=== PATIENT | male | born 1965 | race African-American/Black ===

== ENCOUNTER 2017-02-03 13:00 | Inpatient (IN) | payer MEDICARE, OTHER ==
[~2017-02-03] VITALS: Ht 182.9 cm; Wt 84.4 kg
--- NOTE | ~2017-02-03 | PN ---
Unit #: [id number] #: [id number] Patient: MK UGALDE [id number] [facility] [address] [place] [address] [id number] I MR#: [id number] NAME: MK UGALDE ROOM: 16 Age: 51 Sex: M Admission Date: 02/03/2017 : 1965 Attending Physician: Gatito Vasquez M.D. Admitting Physician: Gatito Vasquez M.D. Primary Care Physician: Generic Doctor Not In System [facility] PROGRESS NOTES DATE 02/06/2017 DISCUSSION Mr. Ugalde continues to have rambling and disorganized speech with paranoia and grandiosity. He is compliant with medications and is sleeping a little bit better. He is alert and fully oriented. His memory and concentration are fair. Thought processes are goal directed and nonpsychotic. ASSESSMENT Schizophrenia paranoid type. PLAN Continue with Zyprexa with dose increased to 15 mg at bedtime. Dictated by... Gatito Vasquez M.D. [facility]/bzg TD: 02/14/2017 11:01 JOB #: [id number] [facility] PROGRESS NOTES Page 1 of 1 X Gatito Vasquez MD PROGRESS NOTE
--- NOTE | ~2017-02-03 | PN ---
Unit #: [id number] #: [id number] Patient: MK UGALDE [id number] [facility] [address] [place] [address] [id number] I MR#: [id number] NAME: MK UGALDE ROOM: 16 Age: 51 Sex: M Admission Date: 02/03/2017 : 1965 Attending Physician: Gatito Vasquez M.D. Admitting Physician: Gatito Vasquez M.D. Primary Care Physician: Generic Doctor Not In System [facility] PROGRESS NOTES DATE 02/10/2017 DISCUSSION Mr. Ugalde is showing some improvement with the addition of Haldol and full compliance. He is not engaged in any further sexual acting out behaviors on the unit and his speech is becoming slightly more intelligible. He is alert and fully oriented with no active suicidal or homicidal ideation. ASSESSMENT Schizophrenia, paranoid type. PLAN Continue current treatment plan. Dictated by... Gatito Vasquez M.D. [facility]/vamshi TD: 02/14/2017 16:54 JOB #: [id number] [facility] PROGRESS NOTES Page 1 of 1 X Gatito Vasquez MD PROGRESS NOTE
--- NOTE | ~2017-02-03 | DS ---
Unit #: [id number] #: [id number] Patient: MK UGALDE [id number] [facility] [address] [place] [address] [id number] I MR#: [id number] NAME: MK UGALDE ROOM: [facility] Age: 51 Sex: M Admission Date: 02/03/2017 : 1965 Discharge Date: 02/11/2017 Attending Physician: Gatito Vasquez M.D. Primary Care Physician: Generic Doctor Not In System DISCHARGE SUMMARY REASON FOR ADMISSION Mr. Ugalde, is a 51-year-old man, with a long history of schizophrenia, well known to me from previous admissions. He came in reporting noncompliance and decompensation and was in a clearly psychotic state. He was admitted for stabilization. DIAGNOSTIC STUDIES Laboratory data, please see hospital chart. HOSPITAL COURSE Mr. Ugalde was admitted and placed on psychosis precautions. Zyprexa 10 mg at bedtime was continued, with a later improvement to 15 mg at bedtime. The patient continued to have rambling speech and paranoia despite compliance with this medication, and due to the sedation this medication was not further increased as an attempt to further control his psychosis, I added Prolixin 5 mg twice daily. The patient had one episode of what appeared to be a mild dystonic reaction to this medication which quickly resolved. He was further able to contract for safety on the date of discharge and appeared improved. DISCHARGE DIAGNOSES Curtice I Schizophrenia, paranoid type. Curtice II No diagnosis. Curtice III None acute. Curtice IV Curtice V INSTRUCTIONS TO PATIENT Follow up with [facility]. DISCHARGE MEDICATIONS 1. Zyprexa 15 mg at bedtime for psychosis 2. Prolixin 5 mg twice daily for psychosis CONDITION AT DISCHARGE Improved. PROGNOSIS Iilp-we-gwgw. DIET AND ACTIVITY Per primary care physician. Unit #: [id number] #: [id number] Patient: MK UGALDE Dictated by... Azeb Champion/ruben TD: 02/16/2017 07:16 JOB #: [id number] DISCHARGE SUMMARY Page 1 of 1 X Gatito Vasquez MD X DISCHARGE SUMMARY
--- NOTE | ~2017-02-03 | PN ---
Unit #: [id number] #: [id number] Patient: MK UGALDE [id number] [facility] [address] [place] [address] [id number] I MR#: [id number] NAME: MK UGALDE ROOM: 16 Age: 51 Sex: M Admission Date: 02/03/2017 : 1965 Attending Physician: Gatito Vasquez M.D. Admitting Physician: Gatito Vasquez M.D. Primary Care Physician: Generic Doctor Not In System [facility] PROGRESS NOTES DATE 02/08/2017 DISCUSSION Mr. Ugalde has successfully tolerated his increased Zyprexa with some sedation but otherwise no other or side effects. His mood is still a little irritable with decreased range of affect, but his thought processes appeared to be mildly more logical and goal directed with less paranoia and grandiosity. ASSESSMENT Schizophrenia paranoid type. PLAN Continue current treatment plan. Dictated by... Gatito Vasquez M.D. [facility]/bzg TD: 02/14/2017 11:14 JOB #: [id number] [facility] PROGRESS NOTES Page 1 of 1 X Gatito Vasquez MD PROGRESS NOTE
--- NOTE | ~2017-02-03 | HP ---
Unit #: [id number] #: [id number] Patient: RICKY HYATT [id number] [facility] [address] [place] [address] [id number] I MR#: [id number] NAME: RICKY HYATT ROOM: [facility] Age: 51 Sex: M Admission Date: 02/03/2017 : 1965 Attending Physician: Gatito Vasquez M.D. Admitting Physician: Gatito Vasquez M.D. Primary Care Physician: Generic Doctor Not In System HISTORY AND PHYSICAL HISTORY OF PRESENT ILLNESS Ricky is a 51 year old admitted to [address] [place] [address] with psychotic behavior. He at time of admission appeared to be responding to internal stimuli. He is a poor historian so his history is taken from his chart. PAST MEDICAL HISTORY 1. History of alcohol abuse to include rubbing alcohol. 2. High blood pressure. PAST SURGICAL HISTORY Knee. ALLERGIES Haldol, risperidone. SOCIAL HISTORY Smokes 1 pack per day. Has a history of alcohol abuse. No known history of illicit substance abuse. FAMILY HISTORY Medically not known. REVIEW OF SYSTEMS He does not answer any questions appropriately. There are no reports of nausea, vomiting or diarrhea. He has had no cough or increased temperature. CURRENT MEDICATIONS 1. Detox protocol. 2. Zyprexa 10 mg q.h.s. PHYSICAL EXAMINATION GENERAL: Alert, confused gentleman in no apparent distress. VITAL SIGNS: Blood pressure 140/82, heart rate 70, respirations 16, temperature 98.6. WEIGHT: 186. HEIGHT: 6 feet 0 inches. SKIN: Warm and dry without rash or lesion. HEENT: Normocephalic. TMs not viewed. Oral and nasal passages clear. Conjunctivae clear. PERRLA. EOMs intact. NECK: Supple without lymphadenopathy or thyromegaly. HEART: Regular rate and rhythm without murmur. LUNGS: Clear. Unit #: [id number] #: [id number] Patient: RICKY HYATT ABDOMEN: Soft, nontender. : Not done. EXTREMITIES: No evidence of cyanosis, clubbing or edema. Moves all without focal deficit. NEUROLOGICAL: Unable to complete extended exam. He does move all extremities without focal deficit. Hand calciminer is equal and gait is normal. IMPRESSION Psychiatric admission. RECOMMENDATIONS PSYCHIATRIC: Per psychiatrist. MEDICAL: See no contraindication to participate in facility's activities. MEDICAL PROGNOSIS Good. MEDICAL CONDITION Stable. Dictated by... Pat Hunt P.A.-C. for Azeb Ramsay/vamshi TD: 02/04/2017 18:09 JOB #: [id number] HISTORY AND PHYSICAL Page 1 of 1 X Pat Hunt X HISTORY AND PHYSICAL
--- NOTE | ~2017-02-03 | PN ---
Unit #: [id number] #: [id number] Patient: MK UGALDE [id number] [facility] [address] [place] [address] [id number] I MR#: [id number] NAME: MK UGALDE ROOM: 16 Age: 51 Sex: M Admission Date: 02/03/2017 : 1965 Attending Physician: Gatito Vasquez M.D. Admitting Physician: Gatito Vasquez M.D. Primary Care Physician: Generic Doctor Not In System [facility] PROGRESS NOTES DATE 02/09/2017 DISCUSSION Mr. Ugalde continues to have ongoing psychosis and has engaged in some sexually acting out behavior on the unit. We have placed him on MIRIAN precautions due to these behaviors. He is alert and fully oriented today. His memory and concentration are fair, and his thought process continues to be rambling. ASSESSMENT Schizophrenia paranoid type. PLAN We will continue with Zyprexa and add Haldol 5 mg twice daily for psychosis. Dictated by... Azeb ChampionH/bzg TD: 02/14/2017 11:37 JOB #: [id number] [facility] PROGRESS NOTES Page 1 of 1 X Gatito Vasquez MD PROGRESS NOTE
--- NOTE | ~2017-02-03 | PN ---
Unit #: [id number] #: [id number] Patient: MK UGALDE [id number] [facility] [address] [place] [address] [id number] I MR#: [id number] NAME: MK UGALDE ROOM: 16 Age: 51 Sex: M Admission Date: 02/03/2017 : 1965 Attending Physician: Gatito Vaqsuez M.D. Admitting Physician: Gatito Vasquez M.D. Primary Care Physician: Generic Doctor Not In System [facility] PROGRESS NOTES DATE 02/05/2017 DISCUSSION Mr. Ugalde continues to be cooperative with treatment but is quite psychotic. His speech is rambling, disorganized and delusional with paranoia and beliefs of persecution. He is alert and oriented to person, location, partially to situation and partially to time. Memory and concentration are poor. Thought processes remain psychotic. ASSESSMENT Schizophrenia paranoid type. PLAN Continue current treatment plan. Dictated by... Azeb Champion/sandrine TD: 02/11/2017 03:51 JOB #: [id number] [facility] PROGRESS NOTES Page 1 of 1 X Gatito Vasquez MD PROGRESS NOTE
--- NOTE | ~2017-02-03 | PN ---
Unit #: [id number] #: [id number] Patient: KM HYATT [id number] [facility] [address] [place] [address] [id number] MR#: [id number] NAME: MK HYATT ROOM: 16 Age: 51 Sex: M Admission Date: 02/03/2017 : 1965 Attending Physician: Gatito Vasquez M.D. Admitting Physician: Gatito Vasquez M.D. Primary Care Physician: Generic Doctor Not In System [facility] PROGRESS NOTES DATE 02/07/2017 DISCUSSION Upon today's assessment the patient was found lying in his bed appearing in no apparent discomfort. He reports I am alright. The patient reports that he was doing okay and then began to start asking about if he could have his food that he brought in upon assessment. Patient's thought processes appeared very circumstantial and I was unable to redirect him to the question that was given to him. He started to say that he saw this provider's picture on the [facility] bus. He then began to say that he knew that he was losing fluids through the palm of his hands and that he could feel it. Patient appeared to be suffering from visual and tactile hallucinations at this time. He continued to focus on receiving food that he had brought in upon his admission and it was explained to him that all food that is brought in when any patient admits is disposed of at that time and that was hospital policy. Patient verbalized understanding and began to speak about the fluids that were being lost to his palm of his hands again. PLAN We will continue to monitor this patient for psychosis and q 15 minutes checks for safety. Dictated by... KAMRAN Lind/sandrine TD: 02/10/2017 23:10 JOB #: [id number] Unit #: [id number] #: [id number] Patient: MK HYATT [facility] NOTES Page 1 of 1 X KEO BOO PROGRESS NOTE
--- NOTE | ~2017-02-03 | PA ---
Unit #: [id number] #: [id number] Patient: MK UGALDE [id number] [facility] [address] [place] [address] [id number] I MR#: [id number] NAME: MK UGALDE ROOM: [facility] Age: 51 Sex: M Admission Date: 02/03/2017 : 1965 Date of Assessment: 02/04/2017 Attending Physician: Gatito Vasquez M.D. Admitting Physician: Gatito Vasquez M.D. Primary Care Physician: Generic Doctor Not In System PSYCHIATRIC ASSESSMENT DATE OF SERVICE 02/04/2017. INFORMANTS The patient, reliable and [facility] records, reliable. CHIEF COMPLAINT Psychosis. HISTORY OF PRESENT ILLNESS Mr. Ugalde is a 51-year-old man with a known history of schizophrenia and chemical dependence. The patient walked into the assessment center, but was unable to cooperate with the assessment due to extreme disorganization, flight of ideas, and loose associations. He was placed on a 72-hour hold and then admitted for an obvious psychotic decompensation. He also declined to go for medical evaluation. PAST PSYCHIATRIC HISTORY Last admission in this facility was in 2013. He has also been admitted to [facility] and [facility] and is an outpatient at [facility]. He is apparently noncompliant with medications. FAMILY PSYCHIATRIC HISTORY The patient's father had an unknown history of substance abuse. SOCIAL HISTORY The patient is single with no children. He is erratically homeless and is on long-term disability for mental illness. 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 PAST MEDICAL HISTORY Significant for chronic pain and arthritis. MEDICATIONS Unknown. ALLERGIES Haldol and risperidone. SUBSTANCE ABUSE HISTORY The patient has been using alcohol and reports extensive history of cocaine and cannabis dependence. He denied any drug use at this time. Unit #: [id number] #: [id number] Patient: MK UGALDE MENTAL STATUS EXAMINATION Mr. Ugalde presented as a mildly disheveled man, who appeared his stated age. Speech was rambling and difficult to understand. Musculoskeletal examination demonstrated mild psychomotor agitation. His mood was labile with a flat affect. He was alert and oriented to person and location, partially to situation, partially to time. Memory and concentration were fair to poor. Thought processes were rambling with loose associations. He had no suicidal ideation or homicidal ideation. Insight and judgment, poor. Fund of knowledge and abstraction were poor. ASSETS AND LIABILITIES The patient knows local resources and is in general good health. Liabilities include apparent noncompliance with medication and ongoing drug use. ADMITTING DIAGNOSES AXIS I: Schizoaffective disorder, bipolar type; cocaine abuse; and history of alcohol abuse. AXIS II: No diagnosis. AXIS III: None. AXIS IV: AXIS V: PSYCHIATRIC PLAN The patient was admitted and placed on psychosis and suicide precautions. I am also going to re-initiate the alcohol detox protocol in case of alcohol withdrawal symptoms and add Zyprexa 10 mg at bedtime empirically for treatment of his psychosis and confusion. He will enroll in dual diagnosis groups and activities and physical examination and laboratory studies will be ordered and reviewed. TREATMENT GOALS Resolution of psychosis, clarification of drug use, improvement in insight, and improvement in coping skills. DISCHARGE PLANNING Follow up with [facility]. ESTIMATED LENGTH OF STAY 5 days. Dictated by... Gatito Vasquez M.D. COTY/devendra TD: 02/04/2017 17:30 JOB #: [id number] Unit #: [id number] #: [id number] Patient: MK UGALDE PSYCHIATRIC ASSESSMENT Page 1 of 1 X Gatito Vasquez MD X PSYCHIATRIC ASSESSMENT
[~2017-02-03 13:00] MED LIST: COGENTIN PO; DERMACORT1 GM TOP; HALDOL PO; IBUPROFEN PO; IMODIUM2 MG PO; MOTRIN400 MG PO; NAPROSYN125 MG/5 M PO; NORVASC PO; PRILOSEC2.5 MG PO
[2017-02-04 09:41] LABS: BASOPHIL% 0.5 % (0-2.5); EOSINOPHIL# 0.2 X10e3 (0-0.7); EOSINOPHIL% 4.8 % (0.0-7.0); HEMATOCRIT 36.1 % (38.0-50.0); HEMOGLOBIN 12.1 gm/dL (13.0-16.0); LYMPHOCYTE# 1.3 X10e3 (1.0-3.5); LYMPHOCYTE% 28.6 % (17.0-45.0); MEAN CELL VOLUME 81.8 FL (83-96); MEAN CORPUSCULAR HEMOGLOBIN 27.4 PG (28-34); MEAN CORPUSCULAR HGB CONC 33.5 g/dL (30-36); MEAN PLATELET VOLUME 7.5 FL (6.5-11.5); MONOCYTE# 0.5 X10e3 (0-1.0); MONOCYTE% 10.5 % (3.0-12.0); NEUTROPHIL# 2.5 X10e3 (1.5-7.1); NEUTROPHIL% 55.6 % (40-75); PLATELET COUNT 318 X10e3 (140-420); RED BLOOD COUNT 4.41 X10e (3.90-5.60); RED CELL DISTRIBUTION WIDTH 13.3 % (11.0-15.5); WHITE BLOOD COUNT 4.6 X10e3 (4.0-10.5)
[2017-02-04 09:53] LABS: DIFF IND NO
[2017-02-04 10:13] LABS: ALBUMIN SERUM 3.6 g/dL (3.5-5.0); BILIRUBIN,TOTAL 0.6 mg/dL (0.2-2.0); CALCIUM SERUM 8.9 mg/dL (8.4-10.2); GLOM FILT RATE Estimated 99.2 mL/min (>60); POTASSIUM 4.1 mmol/L (3.5-5.1); PROTEIN TOTAL SERUM 6.8 g/dL (6.0-8.3)
[2017-02-08 11:32] LABS: URINE APPEARANCE CLEAR; URINE BILIRUBIN NEG (NEG); URINE BLOOD NEG (NEG); URINE COLOR YELLOW; URINE GLUCOSE NEG (NEG); URINE KETONE NEG (NEG); URINE LEUKOCYTE ESTERASE NEG (NEG); URINE NITRATE NEG (NEG); URINE PH 6.5 (5-8); URINE PROTEIN NEG (NEG); URINE SPECIFIC GRAVITY 1.009 (1.003-1.035); URINE UROBILINOGEN 0.2 MG/DL (NEG)
[2017-02-08 11:44] LABS: AMPHETAMINE NEG (NEG); BARBITURATES NEG (NEG); BENZODIAZEPINES NEG (NEG); COCAINE NEG (NEG); MARIJUANA NEG (NEG); OPIATES NEG (NEG); TRICYCLIC ANTIDEPRESSANTS NEG (NEG); U METHADONE NEG (NEG)
== END 2017-02-11 13:15 | disposition home or self-care (01) | DRG 885 ==
LOC: EDUNIT# → P1S 17:52
PROVIDERS: Psychiatry & Neurology Psychiatry
PROC: HZ2ZZZZ Detoxification Services for Substance Abuse Treatment (ICD-10-PCS; principal; 2017-02-04)
DX: F20.0 Paranoid schizophrenia (principal); Z59.0 Homelessness; F14.10 Cocaine abuse, uncomplicated; Z81.3 Family history of other psychoactive substance abuse and dependence; F17.200 Nicotine dependence, unspecified, uncomplicated
CPT/HCPCS: 80053; 80307; 81003; 85025; 86592